=== PATIENT | female | born 1955 | race Caucasian/White ===

== ENCOUNTER 2017-07-14 11:25 | Observation (INO) ==
[2017-07-14 12:10] LABS: Basophils # 0.1 K/mcL (0.0-0.2); Basophils % 0.8 %; Eosinophils # 0.1 K/mcL (0.0-0.6); Eosinophils % 1.3 %; Hematocrit 37.8 % (35.3-44.9); Hemoglobin 12.5 g/dL (11.5-15.4); Immature Granulocytes % 0.2 % (0-4); Lymphocytes # 3.6 K/mcL (0.6-4.6); Mean Corpuscular HGB Conc 33.1 g/dL (31.6-35.5); Mean Corpuscular Hemoglobin 31.7 pg (28.0-33.3); Mean Corpuscular Volume 95.9 fL (83.0-100.0); Mean Platelet Volume 10.6 fL (9.4-12.4); Monocytes # 0.9 K/mcL (0.0-1.3); Monocytes % 9.4 %; Neutrophils # 4.6 K/mcL (1.6-8.9); Platelet Count 215 K/mcL (140-400); Red Blood Count 3.94 M/mcL (3.82-4.97); Red Cell Distribution Width 14.8 % (11.5-14.5); Segmented Neutrophils % 49.3 %
[2017-07-14 12:23] LABS: INR 3.3; Prothrombin Time 36.1 Seconds (9.4-12.1)
[2017-07-14 12:26] LABS: Activated Partial Thrombo Time 41.1 Seconds (26.0-36.0)
[2017-07-14 12:40] LABS: BUN/Creatinine Ratio 21 (6-26); Blood Urea Nitrogen 19 mg/dL (8-23); Calcium 10.1 mg/dL (8.6-10.3); Carbon Dioxide 26 mEq/L (23-29); Chloride 104 mEq/L (98-107); Glucose 111 mg/dL (70-105); Osmolality,Calculated 291 (280-300); Potassium 4.6 mEq/L (3.5-5.1); Sodium 139 mEq/L (136-145); eGFR For African Americans > 60 (> 60); eGFR For Non-African Americans > 60 (> 60)
--- NOTE | 2017-07-14 12:40 | Emergency Department Note ---
Disposition Clinical Impression: Symptomatic bradycardia Disposition: Admitted As Inpatient Condition: Good Referrals: Julee Mccall, LABEL PRINTING MACHINIST [Primary Care Provider] - Forms: ED Satisfaction Letter Time of Disposition: 15:15 Arrhythmia/Palpitations HPI - General Chief Complaint: ED Arrhythmia/Palpitations Stated Complaint: Irregular heart beat,Electrolytes Time Seen by Provider: 07/14/17 11:55 Source: patient Limitations: no limitations Nursing Notes Reviewed: Yes Vital Signs Reviewed: Yes - History of Present Illness HPI Narrative: 61 year old female presents to the ED from her PCP and states that she was told she had a slow heart rate of 59 and when they did the heart asculatation it appeared to be irregular. EKG for us shows NSR with rate f 67, no WI prolongation, RBBB presents. Reyes does not take rate controlling medications. Reyes states that she has been feeling increased lightheadedness without chest pain or shrtness of breath. Reyes states that she also has a dull ache to her upper part of her back without evidence of hypotension, nausea , or vomitting. - Related Data Home Medications Medication Instructions Recorded Confirmed Ezetimibe [Zetia] 10 mg PO DAILY 04/07/16 07/14/17 Folic Acid 1 mg PO DAILY 04/07/16 07/14/17 InFLIXimab [Remicade] 100 mg IV Q8W 04/07/16 07/14/17 Loratadine [Allergy Relief] 10 mg PO DAILY 04/07/16 07/14/17 Losartan Potassium [Cozaar] 50 mg PO BID 04/07/16 07/14/17 Methotrexate [Otrexup] 20 mg PO TU 04/07/16 07/14/17 hydroCHLOROthiazide 25 mg PO DAILY 04/07/16 07/14/17 [Hydrochlorothiazide] Sitagliptin Phos/Metformin HCl 1 each PO BID 04/25/16 07/14/17 [Janumet 50-1,000 mg Tablet] Acetaminophen [Tylenol] 1,000 mg PO Q6HR PRN 09/10/16 07/14/17 Warfarin [Coumadin] 11.25 mg PO SUMOTUWETHSA 09/10/16 07/14/17 Warfarin perPT [Coumadin perPT] 15 mg PO FR 09/10/16 07/14/17 Esomeprazole Magnesium [Nexium] 40 mg PO DAILY 07/14/17 07/14/17 Levothyroxine Sodium [Levoxyl] 100 mcg PO DAILY 07/14/17 07/14/17 Sertraline [Zoloft] 50 mg PO DAILY 07/14/17 07/14/17 Allergies Allergy/AdvReac Type Severity Reaction Status Date / Time No Known Allergies Allergy Verified 08/04/16 14:04 Constitutional: Denies: fever, chills, weakness, weight change Eyes: Denies: eye pain, eye discharge, vision change ENT ED: Denies: ear pain, throat pain, dental pain, hearing loss, epistaxis, congestion, dysphagia Cardiovascular: Reports: other (lightheaded). Denies: chest pain, palpitations , dyspnea on exertion, edema, syncope Respiratory: Denies: cough, dyspnea, wheezes, hemoptysis, stridor Gastrointestinal: Denies: abdominal pain, nausea, vomiting, diarrhea, constipation, hematemesis, melena, hematochezia Genitourinary: Denies: dysuria, frequency, hematuria, discharge Musculoskeletal: Reports: back pain. Denies: neck pain, arthralgia, myalgia Integumentary: Denies: rash, abrasion, lesions Neurological: Denies: headache, weakness, numbness, paresthesias, confusion, abnormal gait, vertigo Psychiatric: Denies: anxiety, depression, suicidal thoughts, homicidal thoughts , auditory hallucinations, visual hallucinations Endocrine: Denies: fatigue Hematological/Lymphatic: Denies: easy bleeding, easy bruising Allergic/Immunologic: Denies: facial swelling, urticaria Past Medical History - Past Medical History Medical history: Reports: arthritis, DVT, diabetes, hyperlipidemia, hypertension , RA Surgical history: Reports: cholecystectomy Psychiatric history: Reports: anxiety 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 CONTROL PILOT history: Reports: non-contributory - Social History Smoking Status: Never smoker Smokeless Tobacco Status: No Alcohol use: Reports: none Drug use: Reports: none Physical Exam - General Limitations: no limitations General appearance: alert, in no apparent distress - Head Head exam: atraumatic, normocephalic, normal inspection - Eye Eye exam: Present: normal appearance, PERRL, EOMI - Expanded Eye Exam Pupils: Bilateral: reactive - ENT ENT exam: normal exam, normal oropharynx, mucous membranes moist - Expanded ENT Exam External ear exam: Present: normal external inspection Mouth exam: Present: normal external inspection Teeth exam: Present: normal inspection Throat exam: Present: normal inspection - Neck Neck exam: Present: normal inspection, full ROM, trachea midline - Chest Chest inspection: Present: normal inspection, symmetric chest wall rise - Respiratory Respiratory exam: Present: normal lung sounds bilaterally - Cardiovascular Cardiovascular exam: Present: regular rate, normal rhythm, normal heart sounds - Abdominal Exam Abdominal exam: Present: soft, Non-Tender. Absent: tenderness, distention, guarding, rebound, rigidity - Extremities Exam Extremities exam: Present: normal inspection, full ROM. Absent: tenderness, pedal edema - Expanded Upper Extremity Exam Shoulder exam: Present: normal inspection, full ROM Arm exam: Present: normal inspection, full ROM Elbow exam: Present: normal inspection, full ROM Forearm/Wrist exam: Present: normal inspection, full ROM Hand exam: Present: normal inspection, full ROM Vascular exam: Normal: capillary refill, radial pulse - Expanded Lower Extremity Exam Hip/Pelvis exam: Present: normal inspection, full ROM Upper leg exam: Present: normal inspection, full ROM Knee exam: Present: normal inspection, full ROM Lower leg exam: Present: normal inspection, full ROM Ankle exam: Present: normal inspection, full ROM Foot/toe exam: Present: normal inspection, full ROM Neurovascular/Tendon exam: Absent: motor deficit, sensory deficit, tendon deficit - Back Exam Back exam: Present: normal inspection, full ROM. Absent: tenderness - Neurological Exam Neurological exam: Present: alert, oriented X3 - Expanded Neurological Exam Patient oriented to: Present: person, place, time Coma Scale Eye Opening: Spontaneous Coma Scale Motor Response: Obeys Commands Coma Scale Verbal Response: Oriented Coma Scale Total: 15 - Psychiatric Psychiatric exam: Present: normal affect, normal mood - Skin Skin exam: Present: warm, dry, intact, normal color Course Course Narrative: we will do cardiopulmoanry workup and assess back pain with CXR - Reevaluation(s) Reevaluation #1: reyes did not tolerte walk test well. She dropped to 30s whenever exerting although at rest she is at 60s. Due to reyes complaint of upper back pain I will obtain a CTA caitlyn to rule out dissection Time: 13:20 - Consultations Consultation #1: discussed case with Dr Baldwin and he accepts reyes for admission. Updated reyes on results and she is agreeable to plan Time: 15:15 Vital Signs Temperature 98.3 F 07/14/17 11:27 Pulse Rate 72 07/14/17 11:27 Respiratory Rate 18 07/14/17 11:27 Blood Pressure 179/89 07/14/17 11:27 O2 Sat by Pulse Oximetry 98 07/14/17 11:27 Temperature 98.3 F 07/14/17 11:27 Pulse Rate 65 07/14/17 14:42 Respiratory Rate 16 07/14/17 14:42 Blood Pressure 123/67 07/14/17 14:42 O2 Sat by Pulse Oximetry 98 07/14/17 14:42 Oxygen Delivery Oxygen Delivery Room Air Arrhythmia/Palpitations - Medical Records Medical records reviewed: Yes I reviewed the patient's medical records. - Lab Data Lab results reviewed: Yes I reviewed the patient's lab results. Result diagrams: 07/14/17 11:43 07/14/17 11:43 Lab Results 07/14/17 07/14/17 07/14/17 Range/Units 11:43 11:43 11:43 WBC 9.2 (4.3-11.1) K/mcL RBC 3.94 (3.82-4.97) M/mcL Hgb 12.5 (11.5-15.4) g/dL Hct 37.8 (35.3-44.9) % MCV 95.9 (83.0-100.0) fL MCH 31.7 (28.0-33.3) pg MCHC 33.1 (31.6-35.5) g/dL RDW 14.8 H (11.5-14.5) % Plt Count 215 (140-400) K/mcL MPV 10.6 (9.4-12.4) fL Immature Gran % 0.2 (0-4) % Seg Neutrophils % 49.3 % Lymphocytes % 39.0 % Monocytes % 9.4 % Eosinophils % 1.3 % Basophils % 0.8 % Neutrophils # 4.6 (1.6-8.9) K/mcL Lymphocytes # 3.6 (0.6-4.6) K/mcL Monocytes # 0.9 (0.0-1.3) K/mcL Eosinophils # 0.1 (0.0-0.6) K/mcL Basophils # 0.1 (0.0-0.2) K/mcL PT 36.1 H (9.4-12.1) Seconds INR 3.3 APTT 41.1 H (26.0-36.0) Seconds Sodium 139 (136-145) mEq/L Potassium 4.6 (3.5-5.1) mEq/L Chloride 104 (98-107) mEq/L Carbon Dioxide 26 (23-29) mEq/L BUN 19 (8-23) mg/dL Creatinine 0.90 (0.60-1.20) mg/dL Est GFR ( Amer) > 60 (> 60) Est GFR (Non-Af Amer) > 60 (> 60) BUN/Creatinine Ratio 21 (6-26) Glucose 111 H (70-105) mg/dL Calculated Osmolality 291 (280-300) Calcium 10.1 (8.6-10.3) mg/dL Troponin I (< 0.04) ng/mL TSH 0.296 L (0.340-5.600) mcIU/mL 07/14/17 Range/Units 11:43 WBC (4.3-11.1) K/mcL RBC (3.82-4.97) M/mcL Hgb (11.5-15.4) g/dL Hct (35.3-44.9) % MCV (83.0-100.0) fL MCH (28.0-33.3) pg MCHC (31.6-35.5) g/dL RDW (11.5-14.5) % Plt Count (140-400) K/mcL MPV (9.4-12.4) fL Immature Gran % (0-4) % Seg Neutrophils % % Lymphocytes % % Monocytes % % Eosinophils % % Basophils % % Neutrophils # (1.6-8.9) K/mcL Lymphocytes # (0.6-4.6) K/mcL Monocytes # (0.0-1.3) K/mcL Eosinophils # (0.0-0.6) K/mcL Basophils # (0.0-0.2) K/mcL PT (9.4-12.1) Seconds INR APTT (26.0-36.0) Seconds Sodium (136-145) mEq/L Potassium (3.5-5.1) mEq/L Chloride (98-107) mEq/L Carbon Dioxide (23-29) mEq/L BUN (8-23) mg/dL Creatinine (0.60-1.20) mg/dL Est GFR ( Amer) (> 60) Est GFR (Non-Af Amer) (> 60) BUN/Creatinine Ratio (6-26) Glucose (70-105) mg/dL Calculated Osmolality (280-300) Calcium (8.6-10.3) mg/dL Troponin I < 0.03 (< 0.04) ng/mL TSH (0.340-5.600) mcIU/mL - Radiology Data Radiology results reviewed: Yes I reviewed the patient's radiology results. - EKG Data EKG attestation: Yes I reviewed and interpreted this EKG. EKG results narrative: NSR with rate of 67. NO STEMI. normal intervals. RBBB. no change from 09/08/16. 113
[2017-07-14 13:02] LABS: Thyroid Stimulating Hormone 0.296 mcIU/mL (0.340-5.600)
--- NOTE | 2017-07-14 17:34 | Internal Med History&Physical ---
Date of Encounter: 07/14/17 Time of Encounter: 17:00 Assessment and Plan (1) Symptomatic bradycardia Current visit: Yes Status: Acute -Patient was sent to the ER by cooler service supervisor due to bradycardia. -Recorded heart rate from ER until now has been 59-72. -Will continue to monitor on telemetry and reevaluate in the morning (2) Hypertension Current visit: No Status: Acute -Patient currently normotensive; continue hydrochlorothiazide and are Cozaar Qualifiers: Hypertension type: essential hypertension Qualified Code(s): I10 - Essential (primary) hypertension (3) Rheumatoid arthritis Current visit: No Status: Acute -Continue current management with methotrexate and Remicade Qualifiers: Rheumatoid arthritis location: multiple sites Rheumatoid factor presence: with rheumatoid factor Qualified Code(s): M05.79 - Rheumatoid arthritis with rheumatoid factor of multiple sites without organ or systems involvement (4) Hypothyroid Current visit: Yes Status: Acute -Continue levothyroxine Qualifiers: Hypothyroidism type: unspecified Qualified Code(s): E03.9 - Hypothyroidism , unspecified (5) Diabetes mellitus Current visit: No Status: Acute -Will hold Janumet and cover with insulin sliding scale. Qualifiers: Diabetes mellitus type: type 2 Diabetes mellitus complication status: with unspecified complications Diabetes mellitus [facility] insulin use: unspecified watermelon inspector insulin use status Qualified Code(s): E11.8 - Type 2 diabetes mellitus with unspecified complications (6) Pulmonary embolism Current visit: No Status: Acute -Continue home dose of Coumadin; INR therapeutic at 3.3 Qualifiers: Pulmonary embolism type: other Chronicity: acute Acute cor pulmonale presence: without acute cor pulmonale Qualified Code(s): I26.99 - Other pulmonary embolism without acute cor pulmonale (7) DVT (deep venous thrombosis) Current visit: No Status: Acute -Continue home dose of Coumadin; INR therapeutic at 3.3 Qualifiers: DVT location: lower extremity Affected thrombotic vein of extremity: unspecified vein of extremity Chronicity: acute Laterality: left Qualified Code(s): I82.402 - Acute embolism and thrombosis of unspecified deep veins of left lower extremity (8) DVT prophylaxis Current visit: No Status: Acute -On Coumadin as above Internal Medicine - H&P: HPI Chief complaint: Bradycardia Admitted From: Home Plans for Post Hospital Care: Home History of present illness: Patient is a 61-year-old female with past medical history significant for hypertension, hyperlipidemia, hypothyroidism, diabetes and multiple DVTs/PEs with IVC filter who was sent to the ER by cooler service supervisor office on 07/14/17 due to bradycardia. Patient reported of having a scheduled rheumatological appointment today and was found to be bradycardic. Patient also reported symptoms of lightheadedness and was recommended to come to the ER for further evaluation. In the ER, patients heart rate ranged from 59-72 and blood pressure normotensive. Patient will be admitted to the medical surgical floor for further monitoring and evaluation. Past Med Surg Social Fam HX - Past Medical History Medical history: arthritis, DVT, diabetes, hyperlipidemia, hypertension, RA Psychiatric history: anxiety - Past Surgical History Surgical History: cholecystectomy - Social History Smoking Status: Never smoker Smokeless Tobacco Status: No Alcohol use: none Drug use: none - Family History Mother Living Status: Hx Family Cardiac Disorders: Yes (pacer maker) Hx Family Neurologic Disorders: Yes (parkinsons) Internal Medicine - H&P: Meds Ezetimibe [Zetia] 10 mg PO DAILY 04/07/16 [History] Folic Acid 1 mg PO DAILY 04/07/16 [History] InFLIXimab [Remicade] 100 mg IV Q8W 04/07/16 [History] Loratadine [Allergy Relief] 10 mg PO DAILY 04/07/16 [History] Losartan Potassium [Cozaar] 50 mg PO BID 04/07/16 [History] Methotrexate [Otrexup] 20 mg PO TU 04/07/16 [History] hydroCHLOROthiazide [Hydrochlorothiazide] 25 mg PO DAILY 04/07/16 [History] Sitagliptin Phos/Metformin HCl [Janumet 50-1,000 mg Tablet] 1 each PO BID [History] Acetaminophen [Tylenol] 1,000 mg PO Q6HR PRN 09/10/16 [History] Warfarin [Coumadin] 11.25 mg PO SUMOTUWETHSA 09/10/16 [History] Warfarin perPT [Coumadin perPT] 15 mg PO FR 09/10/16 [History] Esomeprazole Magnesium [Nexium] 40 mg PO DAILY 07/14/17 [History] Levothyroxine Sodium [Levoxyl] 100 mcg PO DAILY 07/14/17 [History] Sertraline [Zoloft] 50 mg PO DAILY 07/14/17 [History] 3 Allergy/AdvReac Type Severity Reaction Status Date / Time No Known Allergies Allergy Verified 08/04/16 14:04 All Systems PM: A 10-system review of systems was performed and is negative for pertinent findings except as documented above in the HPI. - Constitutional Vitals: Temp Pulse Resp BP Pulse Ox 97.7 F 68 18 144/86 95 07/14/17 17:29 07/14/17 17:29 07/14/17 17:29 07/14/17 17:29 07/14/17 17:29 General appearance: Present: A&O X 3, no acute distress - Head Head exam: Present: normocephalic - ENT ENT exam: Present: mucous membranes moist - Respiratory Respiratory exam: Present: CTAB. Absent: accessory muscle use, rales, rhonchi, wheezes - Cardiovascular Cardiovascular exam: Present: RRR, +S1, +S2. Absent: diastolic murmur, gallop, rubs, systolic murmur - GI/Abdominal GI/Abdominal exam: Present: normal bowel sounds, soft, no peritoneal signs. Absent: distended, tenderness - Extremities Exam Extremities exam: Absent: pedal edema - Neurological Exam Neurological exam: Present: oriented X3 - Psychiatric Psychiatric exam: Present: normal mood - Skin Skin exam: Present: normal color Internal Med - H&P Results - Labs CBC & Chem 7: 07/14/17 11:43 07/14/17 11:43
[2017-07-14] MEDS ORDERED: Naloxone 0.4 MG/ML INJ IVP PRN (17:45)
[2017-07-14] MEDS ORDERED: D5% in Water 1,000 ML IVC PRN (17:47)
[2017-07-14] MEDS ORDERED: Dextrose Gel 15 GM/37.5 ML TUBE PO PRN (17:47)
[2017-07-14] MEDS ORDERED: *HR* Methotrexate 2.5 MG TABLET PO SCH ×2 (18:00→19:30)
[2017-07-14] MEDS: *HR* Warfarin 7.5 MG TABLET PO SCH (21:46)
[2017-07-15 07:05] LABS: Basophils % 0.7 %; Eosinophils # 0.1 K/mcL (0.0-0.6); Eosinophils % 1.7 %; Hematocrit 36.5 % (35.3-44.9); Hemoglobin 12.2 g/dL (11.5-15.4); Immature Granulocytes % 0.2 % (0-4); Lymphocytes # 2.7 K/mcL (0.6-4.6); Lymphocytes % 44.6 %; Mean Corpuscular HGB Conc 33.4 g/dL (31.6-35.5); Mean Corpuscular Hemoglobin 31.8 pg (28.0-33.3); Mean Corpuscular Volume 95.1 fL (83.0-100.0); Mean Platelet Volume 10.8 fL (9.4-12.4); Monocytes # 0.7 K/mcL (0.0-1.3); Monocytes % 11.5 %; Neutrophils # 2.5 K/mcL (1.6-8.9); Platelet Count 195 K/mcL (140-400); Red Blood Count 3.84 M/mcL (3.82-4.97); Red Cell Distribution Width 14.9 % (11.5-14.5); Segmented Neutrophils % 41.3 %
[2017-07-15 07:10] LABS: INR 2.5; Prothrombin Time 27.5 Seconds (9.4-12.1)
[2017-07-15 07:28] LABS: BUN/Creatinine Ratio 22 (6-26); Blood Urea Nitrogen 15 mg/dL (8-23); Calcium 9.4 mg/dL (8.6-10.3); Carbon Dioxide 27 mEq/L (23-29); Chloride 105 mEq/L (98-107); Glucose 148 mg/dL (70-105); Osmolality,Calculated 290 (280-300); Potassium 3.9 mEq/L (3.5-5.1); Sodium 138 mEq/L (136-145); eGFR For African Americans > 60 (> 60); eGFR For Non-African Americans > 60 (> 60)
[2017-07-15] MEDS: Folic Acid 1 MG TABLET PO SCH (08:34)
[2017-07-15] MEDS: Loratadine 10 MG TABLET PO SCH (08:34)
[2017-07-15] MEDS: 0.9 % Sodium Chloride 1,000 ML IVC SCH ×2 (08:38→22:26)
--- NOTE | 2017-07-15 09:16 | Electrocardiograph Report ---
[facility] Test Date: 2017-07-14 Pat Name: Any Hayes Department: [id number] Room: 2A72 Gender: F Hand Singer: : [id number] Requested By: Kirstie Abebe Order Number: [id number] Reading MD: Brendan Moses MD Measurements Intervals [place] Rate: 67 P: 34 [place]: 183 QRS: 64 QRSD: 147 T: 34 QT: 424 QTc: 439 Interpretive Statements SINUS RHYTHM RIGHT BUNDLE BRANCH BLOCK Electronically Signed On 07-15-2017 9:14:26 EST by Brendan Moses MD
[2017-07-15] MEDS ORDERED: Dextrose Gel 15 GM/37.5 ML TUBE PO PRN (13:08)
[2017-07-15] MEDS ORDERED: *HR* Dextrose 50 % in Water (Syg) 50 ML SYRINGE IVP PRN (13:08)
[2017-07-15] MEDS ORDERED: D5% in Water 1,000 ML IVC PRN (13:08)
[2017-07-15] MEDS: hydroCHLOROthiazide 25 MG TABLET PO SCH (14:14)
[2017-07-15] MEDS: Insulin LISPRO 300 UNITS/3 ML VIAL SQ SCH (17:58)
--- NOTE | 2017-07-15 18:00 | Internal Med Progress Note ---
Date of Encounter: 07/15/17 Time of Encounter: 11:00 - Assessment and plan (1) Symptomatic bradycardia Current Visit: Yes Status: Acute Assessment and plan: -Nursing staff reports that patient had bradycardic episodes overnight and during the day on telemetry with heart rate as low as in the 30s. -Cardiology consulted and appreciate recommendations. (2) Hypertension Current Visit: No Status: Acute Assessment and plan: -Blood pressure slightly elevated; home dose of hydrochlorothiazide and Cozaar restarted today Qualifiers: Hypertension type: essential hypertension Qualified Code(s): I10 - Essential (primary) hypertension (3) Rheumatoid arthritis Current Visit: No Status: Acute Assessment and plan: -Continue home dose of methotrexate and Remicade Qualifiers: Rheumatoid arthritis location: multiple sites Rheumatoid factor presence: with rheumatoid factor Qualified Code(s): M05.79 - Rheumatoid arthritis with rheumatoid factor of multiple sites without organ or systems involvement (4) Hypothyroid Current Visit: Yes Status: Acute Assessment and plan: -Continue home dose of levothyroxine Qualifiers: Hypothyroidism type: unspecified Qualified Code(s): E03.9 - Hypothyroidism , unspecified (5) Diabetes mellitus Current Visit: No Status: Acute Assessment and plan: Coverage with sliding scale insulin Qualifiers: Diabetes mellitus type: type 2 Diabetes mellitus complication status: with unspecified complications Diabetes mellitus custodial insulin use: unspecified long term acute care registered nurse insulin use status Qualified Code(s): E11.8 - Type 2 diabetes mellitus with unspecified complications (6) Pulmonary embolism Current Visit: No Status: Acute Assessment and plan: -Continue home dose of Coumadin Qualifiers: Pulmonary embolism type: other Chronicity: acute Acute cor pulmonale presence: without acute cor pulmonale Qualified Code(s): I26.99 - Other pulmonary embolism without acute cor pulmonale (7) DVT (deep venous thrombosis) Current Visit: No Status: Acute Assessment and plan: On Coumadin as above Qualifiers: DVT location: lower extremity Affected thrombotic vein of extremity: unspecified vein of extremity Chronicity: acute Laterality: left Qualified Code(s): I82.402 - Acute embolism and thrombosis of unspecified deep veins of left lower extremity (8) DVT prophylaxis Current Visit: No Status: Acute - Subjective Interval history: Nursing staff reports that patient had bradycardic episodes overnight and during the day on telemetry with heart rate as low as in the 30s. - Constitutional Vitals: Temp Pulse Resp BP Pulse Ox 97.6 F 64 16 156/89 95 07/15/17 15:00 07/15/17 15:00 07/15/17 15:00 07/15/17 15:00 07/15/17 15:00 General appearance: Present: A&O X 3, no acute distress - Respiratory Respiratory exam: Present: CTAB. Absent: accessory muscle use, rales, rhonchi, wheezes - Cardiovascular Cardiovascular exam: Present: bradycardia, +S1, +S2. Absent: diastolic murmur, gallop, rubs, systolic murmur Internal Medicine: Result - Labs CBC & Chem 7: 07/15/17 06:45 07/15/17 06:45 Labs: Short CBC 07/15/17 Range/Units 06:45 WBC 6.0 (4.3-11.1) K/mcL Hgb 12.2 (11.5-15.4) g/dL Hct 36.5 (35.3-44.9) % Plt Count 195 (140-400) K/mcL Neutrophils # 2.5 (1.6-8.9) K/mcL BMP 07/15/17 06:45 Sodium 138 Potassium 3.9 Chloride 105 Carbon Dioxide 27 BUN 15 Creatinine 0.69 Glucose 148 H Calcium 9.4 - ABG Interpretation ABG results: PT/INR, D-dimer PT 27.5 Seconds (9.4-12.1) H 07/15/17 06:45 Consult Discharge Plan - Plan Referrals: Julee Mccall, CLINICAL NURSING INTERN [Primary Care Provider] - (Patient need to call for an appt. Per office)
[2017-07-15] MEDS: Warfarin perPT PO SCH (18:29)
[2017-07-15] MEDS: *HR* Warfarin 7.5 MG TABLET PO SCH (18:32)
[2017-07-15] MEDS ORDERED: Insulin LISPRO 300 UNITS/3 ML VIAL SQ SCH (21:00)
[2017-07-16 04:11] LABS: INR 2.7; Prothrombin Time 29.5 Seconds (9.4-12.1)
[2017-07-16] MEDS: Warfarin perPT PO SCH ×2 (09:37→17:13)
[2017-07-16] MEDS: Folic Acid 1 MG TABLET PO SCH (09:39)
[2017-07-16] MEDS: Insulin LISPRO 300 UNITS/3 ML VIAL SQ SCH ×3 (09:39→16:31)
[2017-07-16] MEDS: hydroCHLOROthiazide 25 MG TABLET PO SCH (09:39)
[2017-07-16] MEDS: Loratadine 10 MG TABLET PO SCH (09:40)
[2017-07-16] MEDS: 0.9 % Sodium Chloride 1,000 ML IVC SCH (11:52)
--- NOTE | 2017-07-16 15:19 | Cardiology Consult Note ---
Date of Encounter: 07/16/17 Time of Encounter: 10:30 Assessment and Plan (1) Bradycardia Current Visit: Yes Status: Acute Per cardiology: -Sent to [facility] [place] from outpatient office due to "low HR." Of note, patient reports at that time she felt fine. -Telemetry reviewed with average HR previous 12 hours noted to be 56, SB. PACs, blocked PACs, and PVCs noted. -Minimum HR 33 @ 0212 (nocturnal). -Reports JESSICA, non-compliant with CPAP. -Known thyroidectomy with abnormal TSH, on synthroid. -Not on any AV donte blcokers at home. -Of note, does report symtpoms of lightheadedness upon position change. Orthostatic vital signs this admission with laying SBP 136 and standing SBP 111. -Will check TTE. -Further recommendations pending TTE. Discussion w patient/family: The assessment and plan as outlined above was discussed with the patient and/or family members who expressed understanding and agreement. All questions were answered. Thank you for involving us in the care of your patient. Please call with any questions. Discussed and reviewed with . History of Present Illness Consult date: 07/15/17 Requesting physician: Jourdan Cloud Consult reason: bradycardia Chief complaint: "low HR" History of present illness: Ms. Hayes is a 61 year old female with a relevant past medical history of RA , DM, HTN, DVT, PE, IVC filter, JESSICA non-compliant with CPAP, Goiter s/p thyroidectomy. 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 Patient states she was feeling fine. Patient denies dizziness, lightheadedness, syncope or near syncope at that time. Patient does admit to lightheadedness upon position changes, usually sitting to standing. Patient reports has JESSICA, however states she could not tolerate her CPAP mask and she sent her machine back to the company. Past Med Surg Social Fam HX - Past Medical History Attestation: Yes The following information was validated with the patient. Source: patient, old records reviewed Medical history: arthritis, DVT, diabetes, hyperlipidemia, hypertension, RA Psychiatric history: anxiety - Past Surgical History Surgical History: cholecystectomy - Social History Smoking Status: Never smoker Smokeless Tobacco Status: No Alcohol use: none Drug use: none - Family History Mother Living Status: Hx Family Cardiac Disorders: Yes (pacer maker) Hx Family Neurologic Disorders: Yes (parkinsons) Medications and Allergies Ezetimibe [Zetia] 10 mg PO DAILY 04/07/16 [History] Folic Acid 1 mg PO DAILY 04/07/16 [History] InFLIXimab [Remicade] 100 mg IV Q8W 04/07/16 [History] Loratadine [Allergy Relief] 10 mg PO DAILY 04/07/16 [History] Losartan Potassium [Cozaar] 50 mg PO BID 04/07/16 [History] Methotrexate [Otrexup] 15 mg PO TU 04/07/16 [History] hydroCHLOROthiazide [Hydrochlorothiazide] 25 mg PO DAILY 04/07/16 [History] Sitagliptin Phos/Metformin HCl [Janumet 50-1,000 mg Tablet] 1 each PO BID [History] Acetaminophen [Tylenol] 1,000 mg PO Q6HR PRN 09/10/16 [History] Warfarin [Coumadin] 11.25 mg PO SUMOTUWETHSA 09/10/16 [History] Warfarin perPT [Coumadin perPT] 15 mg PO FR 09/10/16 [History] Esomeprazole Magnesium [Nexium] 40 mg PO DAILY 07/14/17 [History] Levothyroxine Sodium [Levoxyl] 100 mcg PO DAILY 07/14/17 [History] Sertraline [Zoloft] 50 mg PO DAILY 07/14/17 [History] 3 Allergy/AdvReac Type Severity Reaction Status Date / Time No Known Allergies Allergy Verified 08/04/16 14:04 All Systems Review: A 10-system review of systems was performed and is negative for pertinent findings except as documented above in the HPI. - Cardiovascular Cardiovascular: as per HPI, slow heart rate Physical Examination Vital Signs, Last 4 Hours Temp Pulse Resp BP Pulse Ox 07/16/17 11:24 97.9 F 102 16 135/71 95 General: Conversant, No Apparent Distress HEENT: Atraumatic, Normocephaly, Mucus Membranes Moist Neck: No JVD, Normal carotid pulses Cardiac: Reg Rate and Rhythm, Normal S1 and S2, No Murmur Lungs: Normal Breath Sounds, No Wheeze, Rales, Rhonchi Neuro: Alert and responsive, No focal deficits noted Abdomen: Soft, Non-Tender Skin: No rashes noted on visualized skin Musculoskeletal: No Chest Wall Tenderness Extremities: No Clubbing, No Cyanosis, No Edema, Normal Pulses Results 07/15/17 06:45 07/15/17 06:45 Lab Results Impressions Chest X-Ray 07/14/17 11:31 IMPRESSION: Bibasilar opacities are unchanged and likely reflect scarring. Otherwise no acute cardiopulmonary findings. D/ / 07/14/2017 12:59:33 [facility] Interpreting Provider: Marivel Lizarraga MD Current Medications Acetaminophen (Tylenol) 1,000 mg PO Q6HR PRN PRN Reason: Mild Pain Stop: 01/13/18 17:49 Dextrose/Water (Dextrose 50% (Syg)) 25 ml IVP AD PRN PRN Reason: Hypoglycemia Stop: 01/14/18 13:09 Folic Acid (Folic Acid) 1 mg PO DAILY EMILY Stop: 01/14/18 09:01 Last Admin: 07/16/17 09:39 Dose: 1 mg Glucagon (Glucagen) 1 mg IM ONCE PRN PRN Reason: Hypoglycemia Stop: 01/13/18 17:48 Glucose (Gluctose) 30 gm PO ONCE PRN PRN Reason: Hypoglycemia Stop: 01/13/18 17:48 Glucose (Gluctose) 15 gm PO ONCE PRN PRN Reason: Hypoglycemia Stop: 01/14/18 13:09 Hydrochlorothiazide (Hydrochlorothiazide) 25 mg PO DAILY EMILY PRN Reason: Protocol Stop: 01/14/18 09:01 Last Admin: 07/16/17 09:39 Dose: 25 mg Sodium Chloride (0.9 % Sodium Chloride) 1,000 mls @ 75 mls/hr IVC .Q12H70V EMILY Stop: 01/14/18 08:16 Last Admin: 07/16/17 11:52 Dose: 75 mls/hr Dextrose (Dextrose 5%) 1,000 mls @ 100 mls/hr IVC .Q10H PRN PRN Reason: HYPOGLYCEMIA Stop: 01/14/18 13:09 Insulin Human Lispro (Humalog) 0 units SQ HS EMILY PRN Reason: Protocol Stop: 01/14/18 21:01 Last Admin: 07/15/17 20:26 Dose: Not Given Insulin Human Lispro (Humalog) 0 units SQ TIDAC [facility] PRN Reason: Protocol Stop: 01/14/18 16:31 Last Admin: 07/16/17 11:52 Dose: 2 units Levothyroxine Sodium (Synthroid) 100 mcg PO 0630 [facility] Stop: 01/14/18 06:31 Last Admin: 07/16/17 06:09 Dose: 100 mcg Loratadine (Claritin) 10 mg PO DAILY [facility] PRN Reason: Protocol Stop: 01/14/18 09:01 Last Admin: 07/16/17 09:40 Dose: 10 mg Losartan Potassium (Cozaar) 50 mg PO BID [facility] Stop: 01/13/18 21:01 Last Admin: 07/16/17 09:39 Dose: 50 mg Methotrexate (Otrexup) 15 mg PO TU [facility] Stop: 01/13/18 18:01 Last Admin: 07/14/17 21:46 Dose: 15 mg Naloxone HCl (Narcan) 0.4 mg IVP Q2MIN PRN PRN Reason: SEE COMMENTS Stop: 01/13/18 17:46 Omeprazole (Prilosec) 40 mg PO 0730 [facility] Stop: 01/14/18 07:31 Last Admin: 07/16/17 09:39 Dose: 40 mg Sertraline HCl (Zoloft) 50 mg PO DAILY [facility] Stop: 01/14/18 09:01 Last Admin: 07/16/17 09:39 Dose: 50 mg Warfarin Sodium (Coumadin) 11.25 mg PO SuMoTuWeThSa@1800 [facility] Stop: 01/13/18 18:01 Last Admin: 07/15/17 18:32 Dose: 11.25 mg Warfarin Sodium (Coumadin Perpt) 1 each PO 1800 [facility] Stop: 01/13/18 18:01 Last Admin: 07/16/17 09:37 Dose: Not Given Warfarin Sodium (Coumadin) 15 mg PO Fr@1800 [facility] Stop: 01/16/18 18:01 Laboratory Tests 07/14/17 07/14/17 07/15/17 11:43 11:43 06:45 Hgb 12.2 INR Creatinine Troponin I < 0.03 TSH 0.296 L 07/15/17 07/16/17 06:45 03:58 Hgb INR 2.7 Creatinine 0.69 Troponin I TSH - Imaging and Cardiology Chest Xray: report reviewed Echo: pending, report reviewed - EKG Interpretation EKG results cardiology: personally reviewed (ECG with SR, RBBB. HR 67.), other ( Telemetry reviewed with average HR previous 12 hours noted to be 56, SB. Minimum HR 33 at 0212. PACs, blocked PACs,and PVCs noted.) Consult Discharge Plan - Plan Referrals: Julee Mccall, [employer] TIME ANALYST [Primary Care Provider] - (Patient need to call for an appt. Per office)
[2017-07-16 16:04] VITALS: BP 162/79
[2017-07-16] MEDS: *HR* Warfarin 7.5 MG TABLET PO SCH (17:24)
--- NOTE | 2017-07-16 17:46 | Discharge Summary ---
Date of Encounter: 07/16/17 Time of Encounter: 11:00 - Discharge Diagnosis (1) Symptomatic bradycardia Priority: Primary Status: Acute (2) Hypertension Priority: Secondary Status: Acute Qualifiers: Hypertension type: essential hypertension Qualified Code(s): I10 - Essential (primary) hypertension (3) Rheumatoid arthritis Priority: Secondary Status: Acute Qualifiers: Rheumatoid arthritis location: multiple sites Rheumatoid factor presence: with rheumatoid factor Qualified Code(s): M05.79 - Rheumatoid arthritis with rheumatoid factor of multiple sites without organ or systems involvement (4) Hypothyroid Priority: Secondary Status: Acute Qualifiers: Hypothyroidism type: unspecified Qualified Code(s): E03.9 - Hypothyroidism , unspecified (5) Diabetes mellitus Priority: Secondary Status: Acute Qualifiers: Diabetes mellitus type: type 2 Diabetes mellitus complication status: with unspecified complications Diabetes mellitus timber selector insulin use: unspecified residential insulin use status Qualified Code(s): E11.8 - Type 2 diabetes mellitus with unspecified complications (6) Pulmonary embolism Priority: Secondary Status: Acute Qualifiers: Pulmonary embolism type: other Chronicity: acute Acute cor pulmonale presence: without acute cor pulmonale Qualified Code(s): I26.99 - Other pulmonary embolism without acute cor pulmonale - Discharge Medications Home Medications: Ezetimibe [Zetia] 10 mg PO DAILY 04/07/16 [History] Folic Acid 1 mg PO DAILY 04/07/16 [History] InFLIXimab [Remicade] 100 mg IV Q8W 04/07/16 [History] Loratadine [Allergy Relief] 10 mg PO DAILY 04/07/16 [History] Losartan Potassium [Cozaar] 50 mg PO BID 04/07/16 [History] Methotrexate [Otrexup] 15 mg PO TU 04/07/16 [History] hydroCHLOROthiazide [Hydrochlorothiazide] 25 mg PO DAILY 04/07/16 [History] Sitagliptin Phos/Metformin HCl [Janumet 50-1,000 mg Tablet] 1 each PO BID [History] Acetaminophen [Tylenol] 1,000 mg PO Q6HR PRN 09/10/16 [History] Warfarin [Coumadin] 11.25 mg PO SUMOTUWETHSA 09/10/16 [History] Warfarin perPT [Coumadin perPT] 15 mg PO FR 09/10/16 [History] Esomeprazole Magnesium [Nexium] 40 mg PO DAILY 07/14/17 [History] Levothyroxine Sodium [Levoxyl] 100 mcg PO DAILY 07/14/17 [History] Sertraline [Zoloft] 50 mg PO DAILY 07/14/17 [History] Allergies/Adverse Reactions: 3 Allergy/AdvReac Type Severity Reaction Status Date / Time No Known Allergies Allergy Verified 08/04/16 14:04 Procedures/tests Complete & Pending: Procedures Performed prior 72 hours Category Date Time Status EV echocardiogram Routine Y 07/16/17 11:35 Completed Date of admission: 07/14/17 15:56 Primary care physician: Julee Mccall CNP Consults: 07/15/17 16:29 Consult to Cardiology [CONS] Routine Comment: Consulting Provider: Cardiology Camille Reason for Consult: Bradycardia, hypertension Call Completed: No 07/16/17 11:18 Consult to Electrophysiology (EP) [CONS] Routine Consulting Provider: Electrophysiology Camille Reason for Consult: bradycardia Time Notified: 11:10 Call Completed: Yes - Patient Status Disposition: Home, Self-Care Condition: Good - Discharge Instructions Follow Up With: Julee Mccall CNP [Primary Care Provider] - (Patient need to call for an appt. 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 Patient reported of having a scheduled rheumatological appointment today and was found to be bradycardic. Patient also reported symptoms of lightheadedness and was recommended to come to the ER for further evaluation. In the ER, patients heart rate ranged from 59-72 and blood pressure normotensive. Patient was admitted to the medical surgical floor for further monitoring and evaluation. During patients hospital stay, cardiology was consulted and patients average heart rate was noted to be 56 bpm with nocturnal bradycardia also noted in addition to PACs with block. Echocardiogram was recommended which showed normal LV function with no significant valvular disease. Recommendations for patient to avoid negative chronotropic agents and to follow up with cardiology as an outpatient. Patient will also follow up with primary care provider for hypothyroid management due to slightly low TSH levels. - Time Spent with Patient Total time spent providing and/or coordinating discharge services: Less than 30 minutes - Constitutional Vitals: Temp Pulse Resp BP Pulse Ox 97.5 F L 66 16 162/79 96 07/16/17 16:00 07/16/17 16:00 07/16/17 16:00 07/16/17 16:00 07/16/17 16:00 General appearance: Present: A&O X 3, no acute distress - Respiratory Respiratory exam: Present: CTAB. Absent: accessory muscle use, rales, rhonchi, wheezes - Cardiovascular Cardiovascular exam: Present: RRR, +S1, +S2. Absent: diastolic murmur, gallop, rubs, systolic murmur
[2017-07-17] MEDS ORDERED: *HR* Warfarin 7.5 MG TABLET PO SCH (18:00)
== END 2017-07-16 18:35 | disposition home or self-care (01) ==
LOC: EMEROO 11:25 → 2ANU 11:25 → SUATTDRO 15:56 → 2ANU 16:35
PROVIDERS: ADMIT Hospitalist; ATTEND Hospitalist

== ENCOUNTER 2019-03-31 13:11 | Inpatient (IN) ==
[2019-03-31] MEDS ORDERED: 0.9 % Sodium Chloride 1,000 ML IVC ONE (14:03)
[2019-03-31] MEDS ORDERED: Ondansetron 4 MG/2 ML VIAL IVP ONE (14:03)
[2019-03-31] MEDS ORDERED: *HR* FentaNYL (PF) 100 MCG/2 ML VIAL IVP ONE (14:03)
[2019-03-31] MEDS ORDERED: Isovue-370 500 ML BOTTLE IVP ONE (14:03)
[2019-03-31 14:24] LABS: INR 3.5; Prothrombin Time 39.7 Seconds (9.4-12.1)
[2019-03-31 14:38] LABS: Hematocrit 32.7 % (35.3-44.9); Hemoglobin 11.5 g/dL (11.5-15.4); Mean Corpuscular HGB Conc 35.2 g/dL (31.6-35.5); Mean Corpuscular Hemoglobin 31.1 pg (28.0-33.3); Mean Corpuscular Volume 88.4 fL (83.0-100.0); Mean Platelet Volume 11.2 fL (9.4-12.4); Platelet Count 179 K/mcL (140-400); Red Cell Distribution Width 15.1 % (11.5-14.5); White Blood Count 5.8 K/mcL (4.3-11.1)
[2019-03-31 14:57] LABS: Alanine Aminotransferase 86 Units/L (7-52); Albumin 3.1 g/dL (3.5-5.7); Albumin/Globulin Ratio 0.9 (1.1-2.2); Alkaline Phosphatase 105 Units/L (34-104); Aspartate Amino Transferase 105 Units/L (13-39); BUN/Creatinine Ratio 21 (6-26); Bilirubin,Direct 0.4 mg/dL (0.0-0.2); Bilirubin,Indirect 0.8 mg/dL (0.0-1.0); Bilirubin,Total 1.2 mg/dL (0.3-1.0); Blood Urea Nitrogen 17 mg/dL (8-23); Calcium 8.4 mg/dL (8.6-10.3); Carbon Dioxide 21 mEq/L (23-29); Chloride 97 mEq/L (98-107); Globulin 3.3 g/dL (2.4-3.5); Glucose 149 mg/dL (70-105); Osmolality,Calculated 270 (280-300); Potassium 3.7 mEq/L (3.5-5.1); Sodium 128 mEq/L (136-145); Thyroid Stimulating Hormone 3.277 mcIU/mL (0.340-5.600); Total Protein 6.4 g/dL (6.4-8.9); Troponin I < 0.03 ng/mL (< 0.04); eGFR For African Americans > 60 (> 60); eGFR For Non-African Americans > 60 (> 60)
[2019-03-31 15:08] LABS: Lymphocytes # 2.3 K/mcL (0.6-4.6); Monocytes # 0.7 K/mcL (0.0-1.3); Neutrophils # 2.8 K/mcL (1.6-8.9); Platelet Estimate Normal (Normal); Reactive Lymphocytes Present (Not Present)
[2019-03-31 15:40] LABS: Bilirubin,Urine Negative (Negative); Blood,Urine Negative (Negative); Color,Urine Yellow (Yellow); Glucose,Urine (UA) Normal (Normal); Ketones,Urine Negative (Negative); Leukocyte Esterase,Urine Small (Negative); Nitrite,Urine Negative (Negative); Protein,Urine Negative (Neg-Trace); Specific Gravity,Urine 1.016 (1.010-1.025); Urobilinogen,Urine Normal (Normal)
[2019-03-31 15:42] LABS: Bacteria,Urine None Seen per hpf (None-Few); Hyaline Casts,Urine None Seen per lpf (None-Few); RBC,Urine 0-3 per hpf (0-3); Squamous Epithelial Cell,Urine Many per lpf (None-Few); WBC,Urine 0-3 per hpf (0-3)
[2019-03-31 15:45] LABS: Clarity,Urine Clear (Clear)
[2019-03-31] MEDS ORDERED: Ondansetron 4 MG/2 ML VIAL IVP PRN (16:54)
[2019-03-31] MEDS ORDERED: Fluticasone Propionate Nasal 50 MCG/SPRAY BOTTLE NS PRN (17:02)
[2019-03-31] MEDS ORDERED: Loratadine 10 MG TABLET PO PRN (17:02)
[2019-03-31 17:59] LABS: Triiodothyronine (T3) Free 2.47 pg/mL (2.50-3.90)
[2019-03-31] MEDS ORDERED: Warfarin perPT PO PRN (18:00)
[2019-03-31] MEDS: 0.9 % Sodium Chloride 1,000 ML IVC SCH (20:06)
[2019-04-01 05:22] LABS: Adenovirus F 40/41 PCR Not detected (Not detect); Astrovirus PCR Not detected (Not detect); C.difficile Toxin A/B Gene PCR Not detected (Not detect); Campylobacter by PCR Not detected (Not detect); Cryptosporidium by PCR Not detected (Not detect); Cyclospora cayetanensis PCR Not detected (Not detect); E. coli O157 by PCR Not detected (Not detect); Entamoeba histolytica PCR Not detected (Not detect); Enteroaggregative E.coli(EAEC) Not detected (Not detect); Enteropathogenic E.coli(EPEC) Not detected (Not detect); Enterotoxigenic E.coli (ETEC) Not detected (Not detect); Giardia lamblia PCR Not detected (Not detect); Norovirus GI/GII PCR Not detected (Not detect); Plesiomonas shigelloides PCR Not detected (Not detect); Rotavirus A PCR Not detected (Not detect); Salmonella PCR Not detected (Not detect); Sapovirus PCR Not detected (Not detect); Shig/EnteroinvasiveE coli EIEC Not detected (Not detect); Shigalike tox-prod E coli STEC Not detected (Not detect); Vibrio PCR Not detected (Not detect); Vibrio cholerae PCR Not detected (Not detect); Yersinia enterocolitica PCR Not detected (Not detect)
[2019-04-01 05:34] LABS: Basophils % 0.9 %; Hematocrit 31.7 % (35.3-44.9); Hemoglobin 11.2 g/dL (11.5-15.4); Immature Granulocytes % 1.1 % (0-4); Lymphocytes # 2.2 K/mcL (0.6-4.6); Lymphocytes % 48.1 %; Mean Corpuscular HGB Conc 35.3 g/dL (31.6-35.5); Mean Corpuscular Hemoglobin 30.9 pg (28.0-33.3); Mean Corpuscular Volume 87.6 fL (83.0-100.0); Monocytes # 0.3 K/mcL (0.0-1.3); Monocytes % 6.7 %; Platelet Count 178 K/mcL (140-400); Red Blood Count 3.62 M/mcL (3.82-4.97); Red Cell Distribution Width 15.2 % (11.5-14.5); Segmented Neutrophils % 43.2 %; White Blood Count 4.6 K/mcL (4.3-11.1)
[2019-04-01 05:40] LABS: INR 3.1; Prothrombin Time 35.1 Seconds (9.4-12.1)
[2019-04-01 05:51] LABS: BUN/Creatinine Ratio 18 (6-26); Blood Urea Nitrogen 11 mg/dL (8-23); Carbon Dioxide 22 mEq/L (23-29); Chloride 98 mEq/L (98-107); Glucose 132 mg/dL (70-105); Magnesium 1.3 mg/dL (1.6-2.6); Osmolality,Calculated 267 (280-300); Potassium 3.9 mEq/L (3.5-5.1); Sodium 128 mEq/L (136-145); eGFR For African Americans > 60 (> 60); eGFR For Non-African Americans > 60 (> 60)
[2019-04-01 05:55] LABS: Albumin/Globulin Ratio 0.9 (1.1-2.2); Bilirubin,Direct 0.4 mg/dL (0.0-0.2); Bilirubin,Indirect 0.7 mg/dL (0.0-1.0); Bilirubin,Total 1.1 mg/dL (0.3-1.0); Globulin 3.2 g/dL (2.4-3.5); Total Protein 6.2 g/dL (6.4-8.9)
[2019-04-01] MEDS: 0.9 % Sodium Chloride 1,000 ML IVC SCH (06:17)
[2019-04-01 06:46] LABS: Platelet Estimate Normal (Normal); Polychromasia 1+ (Not Present); Reactive Lymphocytes Present (Not Present)
[2019-04-01] MEDS ORDERED: D5% in Water 1,000 ML IVC PRN (08:03)
[2019-04-01] MEDS ORDERED: Dextrose Gel 15 GM/37.5 ML TUBE PO PRN ×2 (08:03)
[2019-04-01] MEDS ORDERED: *HR* Dextrose 50 % in Water (Syg) 50 ML SYRINGE IVP PRN (08:03)
[2019-04-01] MEDS ORDERED: Folic Acid 1 MG TABLET PO SCH (09:00)
[2019-04-01] MEDS ORDERED: Cholecalciferol (D-3) 1,000 UNIT (25MCG) TABLET PO SCH (09:00)
[2019-04-01] MEDS ORDERED: Lactobacillus 1 EACH CAP.SPRINK PO SCH (11:15)
[2019-04-01] MEDS ORDERED: Acetaminophen 325 MG TABLET PO PRN (11:21)
[2019-04-01] MEDS: Insulin LISPRO 300 UNITS/3 ML VIAL SQ SCH ×2 (13:27→17:39)
[2019-04-01] MEDS ORDERED: Azithromycin 500 MG in 0.9 % Sodium Chloride 250 ML IVPB SCH (14:00)
[2019-04-01 14:53] LABS: Adenovirus Not Detected (Not Detect); Bordetella Pertussis Not Detected (Not Detect); Chlamydophila pneumoniae Not Detected (Not Detect); Coronavirus 229E Not Detected (Not Detect); Coronavirus HKU1 Not Detected (Not Detect); Coronavirus NL63 Not Detected (Not Detect); Coronavirus OC43 Not Detected (Not Detect); Human Metapneumovirus Not Detected (Not Detect); Human Rhinovirus/Enterovirus Not Detected (Not Detect); Influenza A Subtype 2009 H1 Not Detected (Not Detect); Influenza A Untypeable Not Detected (Not Detect); Influenza B Not Detected (Not Detect); Mycoplasma pneumoniae Not Detected (Not Detect); Parainfluenza Virus 1 Not Detected (Not Detect); Parainfluenza Virus 2 Not Detected (Not Detect); Parainfluenza Virus 3 Not Detected (Not Detect); Parainfluenza Virus 4 Not Detected (Not Detect); Respiratory Syncytial Virus Not Detected (Not Detect)
[2019-04-01] MEDS ORDERED: cefTRIAXone 1,000 MG in Water for inj. (sterile) 10 ML IVP SCH (15:00)
[2019-04-01] MEDS ORDERED: Cholestyramine 4 GM POWD.PACK PO SCH (16:30)
[2019-04-01] MEDS ORDERED: Perflutren Lipid Microsphere 1.3 ML in 0.9 % Sodium Chloride 8.7 ML IVP ONE (17:34)
[2019-04-02] MEDS ORDERED: EPINEPHrine 5 MG in D5% in Water 250 ML IVC SCH
[2019-04-02] MEDS ORDERED: Norepinephrine 4 MG in 0.9 % Sodium Chloride 250 ML IVC SCH (00:20)
[2019-04-02 00:26] LABS: ABG Base Excess -25 mEq/L (-2 to 3); ABG HCO3 10 mEq/L (21-27); ABG Oxygen Saturation 70 % (95-98); ABG PCO2 72 mmHg (35-45); ABG PH 6.77 pH Units (7.32-7.45); ABG PO2 70 mmHg (85-104); ABG TCO2 13 mEq/L (20-26)
[2019-04-02] MEDS ORDERED: Sodium Bicarbonate 150 MEQ in D5% in Water 1,000 ML IVC SCH (01:00)
[2019-04-02] MEDS ORDERED: Piperacillin/Tazobactam 3.375 GM in 0.9 % Sodium Chloride Mini Bag 100 ML IVP ONE (01:14)
[2019-04-02 01:19] LABS: Hematocrit 31.4 % (35.3-44.9); Hemoglobin 10.5 g/dL (11.5-15.4); Mean Corpuscular HGB Conc 33.4 g/dL (31.6-35.5); Mean Corpuscular Hemoglobin 30.7 pg (28.0-33.3); Mean Corpuscular Volume 91.8 fL (83.0-100.0); Mean Platelet Volume 10.6 fL (9.4-12.4); Nucleated Red Blood Cells 0.3 /100 WBC (0); Platelet Count 121 K/mcL (140-400); Red Blood Count 3.42 M/mcL (3.82-4.97); Red Cell Distribution Width 15.9 % (11.5-14.5)
[2019-04-02] MEDS ORDERED: *HR* Phytonadione 5 MG TABLET PO ONE (01:20)
[2019-04-02 01:22] LABS: White Blood Count 11.8 K/mcL (4.3-11.1)
[2019-04-02 01:27] LABS: INR 3.7; Prothrombin Time 42.1 Seconds (9.4-12.1)
[2019-04-02 01:30] LABS: Activated Partial Thrombo Time 53.6 Seconds (26.0-36.0)
[2019-04-02] MEDS ORDERED: 0.9 % Sodium Chloride 250 ML IVC SCH (01:30)
[2019-04-02] MEDS ORDERED: Vasopressin 40 UNIT in D5% in Water 100 ML IVC PRN (01:30)
[2019-04-02] MEDS ORDERED: Piperacillin/Tazobactam 3.375 GM in 0.9 % Sodium Chloride Mini Bag 100 ML IVP SCH (01:30)
[2019-04-02 01:48] LABS: Albumin 2.6 g/dL (3.5-5.7); Albumin/Globulin Ratio 0.9 (1.1-2.2); Bilirubin,Total 0.9 mg/dL (0.3-1.0); Calcium 7.5 mg/dL (8.6-10.3); Magnesium 2.8 mg/dL (1.6-2.6); Phosphorous 6.5 mg/dL (2.7-4.5); Potassium 4.5 mEq/L (3.5-5.1); Total Protein 5.6 g/dL (6.4-8.9); Troponin I 0.63 ng/mL (< 0.04)
[2019-04-02 02:04] LABS: ABG Base Excess -11 mEq/L (-2 to 3); ABG HCO3 15 mEq/L (21-27); ABG Oxygen Saturation 99 % (95-98); ABG PCO2 34 mmHg (35-45); ABG PH 7.25 pH Units (7.32-7.45); ABG PO2 141 mmHg (85-104); ABG TCO2 16 mEq/L (20-26); Blood Gas Modality ASSIST CONTROL; Blood Gas VT 500 cc
[2019-04-02 02:23] LABS: Lymphocytes # 4.7 K/mcL (0.6-4.6); Monocytes # 0.9 K/mcL (0.0-1.3); Neutrophils # 6.1 K/mcL (1.6-8.9); Platelet Estimate Normal (Normal); Reactive Lymphocytes Present (Not Present)
[2019-04-02] MEDS ORDERED: 0.9 % Sodium Chloride 500 ML ONE (04:24)
[2019-04-02 05:44] LABS: ABG Base Excess -16 mEq/L (-2 to 3); ABG HCO3 13 mEq/L (21-27); ABG Oxygen Saturation 86 % (95-98); ABG PCO2 39 mmHg (35-45); ABG PH 7.12 pH Units (7.32-7.45); ABG PO2 68 mmHg (85-104); ABG TCO2 14 mEq/L (20-26); Blood Gas Modality ASSIST CONTROL; Blood Gas VT 500 cc
[2019-04-02 06:04] LABS: Hemoglobin 7.6 g/dL (11.5-15.4); Mean Corpuscular Hemoglobin 31.5 pg (28.0-33.3); Mean Corpuscular Volume 95.4 fL (83.0-100.0); Mean Platelet Volume 10.9 fL (9.4-12.4); Platelet Count 109 K/mcL (140-400); Red Blood Count 2.41 M/mcL (3.82-4.97); Red Cell Distribution Width 16.5 % (11.5-14.5); White Blood Count 9.5 K/mcL (4.3-11.1)
[2019-04-02 06:08] LABS: INR 3.2; Prothrombin Time 36.5 Seconds (9.4-12.1)
[2019-04-02] MEDS ORDERED: Sodium Bicarbonate 50 MEQ/50 ML VIAL ONE ×2 (06:19→06:24)
[2019-04-02] MEDS ORDERED: Sodium Bicarbonate 50 MEQ/50 ML VIAL IVP ONE (06:20)
[2019-04-02 06:25] LABS: Albumin 2.3 g/dL (3.5-5.7); Albumin/Globulin Ratio 0.9 (1.1-2.2); Calcium 7.1 mg/dL (8.6-10.3); Globulin 2.5 g/dL (2.4-3.5); Magnesium 2.5 mg/dL (1.6-2.6); Phosphorous 7.2 mg/dL (2.7-4.5); Potassium 4.5 mEq/L (3.5-5.1); Total Protein 4.8 g/dL (6.4-8.9)
[2019-04-02] MEDS ORDERED: 0.9 % Sodium Chloride 250 ML ONE (06:29)
[2019-04-02] MEDS ORDERED: 0.9 % Sodium Chloride 1,000 ML ONE (06:29)
[2019-04-02 06:36] VITALS: BP 104/67
[2019-04-02] MEDS ORDERED: Norepinephrine 16 MG in 0.9 % Sodium Chloride 500 ML IVC SCH (06:45)
[2019-04-02] MEDS ORDERED: *HR* Midazolam HCl 2 MG/2 ML VIAL IV ONE (06:56)
[2019-04-02] MEDS ORDERED: Aminoglycoside Consult 1 EACH MC ONE (06:56)
[2019-04-02] MEDS ORDERED: *HR* Norepinephrine 4 MG/4 ML VIAL IVC ONE (06:56)
[2019-04-02] MEDS ORDERED: *HR* Magnesium Sulfate 2 GM/50 ML PIGGYBACK IVPB ONE (06:56)
[2019-04-02] MEDS ORDERED: *HR* EPINEPHrine 1 MG/10 ML SYRINGE IVP ONE ×2 (06:56)
[2019-04-02] MEDS ORDERED: *HR* LORazepam 2 MG/ML VIAL IVP ONE (06:56)
[2019-04-02] MEDS ORDERED: *HR* Amiodarone 150 MG/3 ML VIAL IVPB ONE (06:56)
[2019-04-02] MEDS ORDERED: D5% in Water 250 ML IV BAG IV ONE (06:56)
== END 2019-04-02 06:57 | disposition other institution (70) | DRG 391 ==
LOC: EMEROOARM 13:11 → 3ANU 13:11 → SUATTDRO 16:26 → 3ANU 16:51 → ICNU 04-02 01:06
PROVIDERS: ADMIT Internal Medicine; ATTEND Internal Medicine